=== PATIENT | male | born 1995 | race Asian ===

== ENCOUNTER → 2020-01-22 06:48 | Outpatient (CLI) | payer OTHER, SELFPAY ==
--- NOTE | 2020-01-22 07:11 | DI.ECHO.S_ITS ---
Echocardiogram Report + + :Name: KYLE NEAL Study Date: 01/22/2020 Height: 64 in : :[facility] Weight: 175 lb : : Gender: Male BSA: 1.8 m2 : :: 1995 Age: 24 yrs BP: 122/78 mmHg: :Reason For Study: Elevated Blood Pressure without Hypertension : :Ordering Physician: MARCELLA, : :SHANI Performed By: Becca Chou : :Referring: SHANI NARANJO : + + Interpretation Summary The left ventricle is normal in size and wall thickness. The ejection fraction is estimated to be 60-65%. The right ventricle is mildly dilated. The right ventricular systolic function is normal. No significant valvular pathology seen. Procedure: A two-dimensional transthoracic echocardiogram with color flow and Doppler was performed. The study quality was technically good. There is no prior echocardiogram noted for this patient. The patient was in sinus bradycardia with heart rates between 49-68 bpm during the exam. Left Ventricle: The left ventricle is normal in size and wall thickness. There is no thrombus. A false chord is noted (normal variant). The ejection fraction is estimated to be 60-65%. Left ventricular global longitudinal strain average is -19.7%. There are no focal wall motion abnormalities. Diastolic parameters suggest probable normal left ventricular diastolic function and normal filling pressures. Right Ventricle: The right ventricle is mildly dilated. The right ventricular systolic function is normal. Atria: Both atria are normal in size. There is no Doppler evidence for an interatrial shunt. Mitral Valve: There is a flat closure plane of the the mitral valve leaflets. There is mild mitral annular calcification. There is trace mitral regurgitation. Aortic Valve: The aortic valve is trileaflet. The aortic valve opens well. There is no aortic valve stenosis. No aortic regurgitation is present. Tricuspid Valve: The tricuspid valve is normal in structure and function. There is trace tricuspid regurgitation. Pulmonary artery pressures cannot be estimated because of the lack of a measurable TR jet velocity but the IVC suggests a CVP of around 8 mmHg. Pulmonic Valve: The pulmonic valve leaflets are thin and pliable; valve motion is normal. There is mild pulmonic regurgitation. Great Vessels: The aortic root is normal size. The ascending aorta is normal in size. The IVC is dilated (diameter is greater than 2.1 cm) yet it collapses greater than 50% with a sniff. This suggests a right atrial pressure of 8 mm Hg. Pericardium/ Pleura There is no pericardial effusion. There is no pleural effusion. MMode/2D Measurements & Calculations LVIDd: 4.8 cm LVOT diam: 2.1 cm LVIDs: 3.2 cm Ao root diam: 2.8 cm FS: 34.5 % asc Aorta Diam: 2.6 cm EPSS: 0.70 cm Ao Arch Diam (Prox Trans): 2.5 cm IVSd: 0.98 cm LVPWd: 0.99 cm LV escobar. diameter/BSA (cm/m^2): 2.6 LV sys. diameter/BSA (cm/m^2): 1.7 LA A2 area: 14.7 cm2 RA long axis: 4.9 cm LA A4 area: 17.2 cm2 RA area: 18.4 cm2 LA length (vol): 4.8 cm RA vol: 58.0 ml LA vol: 45.0 ml RA : 31.4 ml/m2 LA vol index: 24.4 ml/m2 IVC diam: 2.2 cm RVD1 (basal): 4.2 cm TAPSE: 2.0 cm Doppler Measurements & Calculations Ao V2 max: 122.4 cm/sec LVOT Max John: 98.8 cm/sec Ao V2 mean: 80.3 cm/sec LV V1 max P.9 mmHg Ao max P.0 mmHg LV V1 VTI: 20.6 cm Ao mean P.0 mmHg GEN(I,D): 2.9 cm2 Ao V2 VTI: 26.0 cm GEN(V,D): 2.9 cm2 sev ratio: 0.79 GEN indexed to BSA (cm^2/m^2): 1.5 MV E max john: 70.4 cm/sec PA V2 max: 74.1 cm/sec MV A max john: 41.1 cm/sec PA V2 mean: 52.1 cm/sec MV E/A: 1.7 PA mean P.3 mmHg Med Peak E' John: 11.7 cm/sec PA pr(Accel): 9.6 mmHg E/E' med: 6.0 Lat Peak E' John: 13.0 cm/sec E/E' lat: 5.4 E/e' average: 5.7 MV dec time: 0.29 sec SV(LVOT): 74.1 ml Reading Physician:03:31 PM
== END ==
PROVIDERS: Referring Provider Preventive Medicine Public Health & General Preventive Medicine; Visit Provider Preventive Medicine Public Health & General Preventive Medicine
DX: I37.1 Nonrheumatic pulmonary valve insufficiency (principal); R03.0 Elevated blood-pressure reading, without diagnosis of hypertension
CPT/HCPCS: 93306

== ENCOUNTER 2020-04-30 21:16 | Emergency (ER) | payer OTHER, SELFPAY ==
[2020-04-30 21:17] VITALS: BP 148/87; PULSE 61; RESP 16; O2SAT 100; BMI 23.1
--- NOTE | 2020-04-30 21:33 | ED.CHESTPAIN ---
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 He states that it occurred earlier today. He is not currently having any of the symptoms. He states that is been off and on for the past 2 days however before 2 days ago he has had this before but very infrequently. He states that when it comes on it is sharp and a ?poking? like sensation. It lasts seconds. Does not seem to be associated with any other symptoms. This is not reproducible with palpation. He states that he did have some pain under his left arm and that was concerning for him so he came to the emergency department for evaluation. Review of Systems Constitutional Constitutional: Denies fatigue, Denies fever(s) and Denies headache(s) ENT Ears, Nose, Mouth, and Throat: Denies headache(s) Cardiovascular Cardiovascular: Reports chest pain, Denies rapid heart rate and Denies dyspnea Respiratory Respiratory: Denies cough and Denies dyspnea Gastrointestinal Gastrointestinal: Denies abdominal pain, Denies nausea and Denies vomiting Integumentary/Breasts Skin/Breast: Denies lesions and Denies rash Neurologic Neurologic: Denies behavioral changes and Denies headache(s) Psychiatric Psychiatric: Denies behavioral changes Endocrine Endocrine: Denies fatigue Hematologic/Lymphatic Hematologic/Lymphatic: Denies easy bleeding and Denies easy bruising Patient History Medical History Healthy adult (Acute) Social History Smoking Status: Never smoker Smoking Status: Never smoker Substance Use Type: does not use Exam Initial Vital Signs Initial Vital Signs: Vital Signs Pulse Rate 61 04/30/20 21:17 Respiratory Rate 16 04/30/20 21:17 Blood Pressure 148/87 H 04/30/20 21:17 Pulse Oximetry 100 04/30/20 21:17 Const General: cooperative and comfortable Limitations: mental status not altered HENMT Head: normal to inspection and normocephalic Chest Chest: No crepitus and No tenderness Resp Effort & Inspection: normal respiratory effort Auscultation: clear to auscultation bilaterally Cardio Rate: regular rate Rhythm: regular rhythm Skin Lesions: no lesions Rashes: no rashes Extrem General: normal to inspection and capillary refill normal Psych Appearance: grossly normal and well kempt Course Orders Ordered: ED Orders 04/30/20 21:26 EKG-12 Lead Stat Vital Signs Vital signs: Vital Signs - 8 hr 04/30/20 21:17 Pulse Rate 61 Respiratory Rate 16 Blood Pressure 148/87 H Pulse Oximetry 100 MDM - Chest Pain ECG Data Attestation: I personally reviewed and interpreted this ECG as follows: Prior ECG tracings: not available for review Interpretation: Sinus rhythm Ventricular rate of 52 Normal axis QRS 165 milliseconds Normal QTC No ST T wave changes MDM Narrative Medical decision making narrative: Patient is low risk for ACS. His symptoms are not consistent with this. Was sharp almost pinpoint left-sided chest discomfort. He is not currently having the symptoms. His EKG is relatively unremarkable. Feel we can hold on further workup for now. Lungs are clear. Will have him follow-up with his primary provider. He is given return precautions. He expressed understanding and agreement. Discharge Plan Departure Patient Disposition: Home Clinical Impression: Atypical chest pain Discharge Date/Time: 04/30/20 21:54 Instructions: DI for Atypical Chest Pain Activity Restrictions/Additional Instructions: I do recommend that you contact your medical department to discuss your blood pressure and potentially even starting on medications. Your symptoms today are not consistent with a heart attack. Recommend you contact your primary doctor to follow up with this as well. Return to the emergency department for any new or worsening symptoms
== END 2020-04-30 21:54 | disposition home or self-care (01) ==
PROVIDERS: Emergency Provider Emergency Medicine
DX: R07.89 Other chest pain (principal)
CPT/HCPCS: 36415; 93005; 99283

== ENCOUNTER 2020-10-23 20:23 | Emergency (ER) | payer OTHER, SELFPAY ==
[2020-10-23 20:53] VITALS: BP 137/88; PULSE 62; RESP 14; TEMP 36.5; O2SAT 100; BMI 23.1
== END 2020-10-23 22:15 | disposition left against medical advice (07) ==
PROVIDERS: Emergency Provider Emergency Medicine
DX: M79.644 Pain in right finger(s) (principal)
CPT/HCPCS: 99281

== ENCOUNTER 2020-11-26 17:23 | Emergency (ER) | payer OTHER, SELFPAY ==
[2020-11-26 17:29] VITALS: BP 142/84; PULSE 88; RESP 20; TEMP 37.1; O2SAT 100
--- NOTE | 2020-11-26 18:06 | ED.NEUROSD ---
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 Describes this episode beginning at approximately 5:30 this evening while he was driving. It did not impair his driving at all and was preceded by an increasingly anxious feeling. He initially noted some tingling in the left lateral calf that then included the leg than the arm than the entire left side of his face. He notes no headache, there is no associated weakness, he did call a friend of his to make sure that he was talking and thinking appropriately and all of that seem to be normal. States that he does not have a history of migraine. He has been having some increased issues with anxiety and depression and is currently seeing a counselor with whom he has reestablishing care. They were supposed to have an appointment this week but needed to rescheduled to next week. He has been tracking blood pressures for the last year and reports that his systolics are averaging 140. There is no family history for stroke or cardiac disease. Currently is only [facility] for medications. He is obviously anxious and obviously quite concerned. He reports no recent fevers cough abdominal pain vomiting or diarrhea. He does note that he had an episode of shooting left-sided chest pain at 2:30 a.m. this morning described as a stabbing piercing feeling that lasted minutes. He was seen in the emergency room in April of last year with similar chest pain complaints. He does describe increasing anxiety, difficulty sleeping and overall depressed mood but no suicidal ideation. On Anticoagulants: No Related Data Allergies Allergy/AdvReac Type Severity Reaction Status Date / Time No Known Drug Allergies Allergy Verified 10/23/20 20:57 Review of Systems Review of Systems Narrative: Remainder of complete review of systems is otherwise unremarkable except for that included in the HPI. Hematologic/Lymphatic On Anticoagulants: No Patient History Medical History (Updated 11/26/20 @ 22:56 by Luma Harvey MD) Anxiety Healthy adult Social History Smoking Status: Never smoker Smoking Status: Never smoker Substance Use Type: does not use Exam Narrative Exam Narrative: General: Healthy appearing, in no acute distress. Significantly anxious with dramatic startle response when I walk into the room but Able to give a complete and coherent history. Well-nourished well-developed HEENT: Moist mucous membranes, normal sclera with reactive pupils, Neck: No JVD, supple, no carotid bruits Respiratory: Lungs are clear to auscultation, no wheezing no rales no rhonchi. Full and symmetrical air movement Cardiac: Regular rate and rhythm no murmurs no bruits. No palpable reproducible left anterior chest pain Abdomen: Soft, nontender, good bowel tones, no flank pain Skin: Warm and dry, no rashes Neurologic: Grossly neurologically intact with no obvious asymmetries or abnormalities. NIH= 0 Extremities: No trauma, well perfused Psych: Cooperative, anxious with appropriate insight and affect Initial Vital Signs Initial Vital Signs: Vital Signs Temperature 98.7 F 11/26/20 17:29 Pulse Rate 88 11/26/20 17:29 Respiratory Rate 20 11/26/20 17:29 Blood Pressure 142/84 H 11/26/20 17:29 Pulse Oximetry 100 11/26/20 17:29 Course Orders Ordered: ED Orders 11/26/20 17:31 EKG-12 Lead Stat 11/26/20 18:45 CT angio head and neck Stat 11/26/20 19:15 Complete Blood Count AUTO DIFF Stat Comprehensive Metabolic Panel Stat D Dimer Stat Vital Signs Vital signs: Vital Signs - 8 hr 11/26/20 17:29 11/26/20 19:25 Temperature 98.7 F Pulse Rate 88 56 L Respiratory Rate 20 18 Blood Pressure 142/84 H 134/90 Pulse Oximetry 100 100 MDM - Neuro Symptoms/Deficit Medical Records Attestation: I reviewed the patient's medical records. Lab Data Attestation: I reviewed the patient's lab results. Result diagrams: 11/26/20 19:15 11/26/20 19:15 Labs: Lab Results 11/26/20 11/26/20 11/26/20 Range/Units 19:15 19:15 19:15 WBC 5.4 (4.5-11.0) X10^3/uL RBC 5.21 (4.5-5.9) X10^6/uL Hgb 15.8 (13.5-17.5) g/dL Hct 44.5 (41-53) % MCV 85.3 (80-100) fL MCH 30.4 (26-34) PG MCHC 35.6 (30-36) % RDW 13.1 (11.6-14.8) % Plt Count 164 (150-400) X10^3/uL Neut % (Auto) 54.4 (50-75) % Lymph % (Auto) 38.8 (25-40) % [place] % (Auto) 5.2 (3-14) % Eos % (Auto) 1.2 L (2-4) % Baso % (Auto) 0.4 (0-2) % Neut # (Auto) 3000 (1023-8298) /uL Lymph # (Auto) 2100 (0402-1393) /uL [place] # (Auto) 300 (0-900) /uL Eos # (Auto) 100 (0-450) /uL Baso # (Auto) 0 (0-100) /uL D-Dimer < 200 (<230) ng/mL Sodium 140 (137-145) mmol/L Potassium 3.5 (3.4-5.1) mmol/L Chloride 102 (98-107) mmol/L Carbon Dioxide 26 (22-32) mmol/L BUN 15 (9-20) mg/dL Creatinine 0.95 (0.66-1.25) mg/dL Estimated GFR > 60.0 (>60) mL/min BUN/Creatinine Ratio 15.8 (6-22) Glucose 117 H (70-100) mg/dL Calcium 9.4 (8.4-10.2) mg/dL Total Bilirubin 0.5 (0.2-1.3) mg/dL AST 33 (17-59) IU/L ALT 21 (<50) IU/L Alkaline Phosphatase 59 (38-126) U/L Total Protein 7.3 (6.3-8.2) g/dL Albumin 4.6 (3.5-5.0) g/dL Globulin 2.7 (1.7-4.1) g/dL Albumin/Globulin Ratio 1.7 (1.0-2.8) Imaging Data CTA head and neck: Radiologist's Impression: FINDINGS: Image quality: Excellent. BRAIN: CSF spaces: Basal cisterns are patent. No extra-axial fluid collections. Ventricles are normal in size and shape. Brain: No intracranial hemorrhage, mass, or mass effect. [place]-white matter interface appears preserved. No abnormal intracranial enhancement. Skull and face: Calvarium and facial bones appear intact, without suspicious lesions. Orbits appear normal. Sinuses: Sinuses and mastoids are clear. HEAD CT ANGIOGRAPHY: Anterior circulation: Intracranial internal carotid arteries are normal in size and appear patent bilaterally. The paired anterior cerebral arteries appear patent bilaterally. The anterior communicating artery also appears patent. The middle cerebral arteries appear patent bilaterally. No high-grade stenosis, occlusion, or filling defects. No cerebral aneurysms identified. Posterior circulation: Visualized portions of the vertebral arteries demonstrate normal caliber, and join to form a patent basilar artery. The posterior cerebral arteries appears patent bilaterally. No high-grade stenosis, occlusion, or filling defects. No cerebral aneurysms identified. NECK CT ANGIOGRAPHY: Carotid system: The great vessels demonstrate a conventional anatomy as they arise from the aortic arch. The origins of the common carotid arteries appear patent. The common carotid arteries demonstrate normal caliber and courses. The bifurcation regions are both widely patent. The internal carotid arteries demonstrate normal calibers and courses. Posterior circulation: The origins of the vertebral arteries both appear patent. The more superior extracranial portions of both vertebral arteries also demonstrate normal courses and calibers. They join to form a patent basilar artery. Soft tissues: Visualized neck soft tissues demonstrate no suspicious abnormalities. Bones: No suspicious bony lesions. Visualized cervical spine appears normally aligned. IMPRESSION: 1. No acute intracranial abnormality. 2. No high-grade stenosis or occlusion of the central intracranial arteries. 3. No high-grade stenosis or occlusion of the head and neck arteries. Any quantitative measurements of stenosis were performed using NASCET criteria. Dictated by: Benito Heath M.D. on 11/26/2020 at 20:41 MDM Narrative Medical decision making narrative: 24-year-old gentleman clearly anxious however with his description of 30 minutes of left leg arm face and forehead paresthesia, TIA is certainly within the differential. Will proceed with lab workup and CTA. Studies and labs are unremarkable. At this point there is no evidence of stroke or TIA. Most likely explanation is increased stress and anxiety. Patient does have a follow-up appointment with his counselor. Reassurance regarding his physical health and medical workup today are shared. Discharge Plan Departure Patient Disposition: Home Clinical Impression: Anxiety, Paresthesia Instructions: DI for Transient Ischemic Attack Activity Restrictions/Additional Instructions: Thank you for coming in today Your head CT and CT angiogram of your head and neck were very reassuring. There is no stroke, no aneurysms, no bleeding and no stenotic areas of concern. I suspect that your symptoms were related to increasing anxiety levels. I think it was very appropriate to complete this thorough workup. I have given you copies of your blood work as well as your CT scan Please share these with your primary care provider. I would strongly encourage you to follow-up with your counseling session and talk about medication management with your primary care provider as well I wish you the best
--- NOTE | 2020-11-26 18:45 | DI.CT.S_ITS ---
PROCEDURE: CT ANGIO HEAD AND NECK INDICATIONS: 30 min left body paresthesia, now resolved TECHNIQUE: Pre-contrast 4.5 mm thick sections acquired from the foramen magnum to the vertex. After the administration of intravenous contrast, 1 mm thick sections acquired from the aortic arch through the [place]. Post-contrast 4.5 mm thick sections then re-acquired from the foramen magnum to the vertex. 3-dimensional [id number] (MIP) and/or volume rendering reformats were acquired of the central intracranial vasculature and neck separately. COMPARISON: None. FINDINGS: Image quality: Excellent. BRAIN: CSF spaces: Basal cisterns are patent. No extra-axial fluid collections. Ventricles are normal in size and shape. Brain: No intracranial hemorrhage, mass, or mass effect. [place]-white matter interface appears preserved. No abnormal intracranial enhancement. Skull and face: Calvarium and facial bones appear intact, without suspicious lesions. Orbits appear normal. Sinuses: Sinuses and mastoids are clear. HEAD CT ANGIOGRAPHY: Anterior circulation: Intracranial internal carotid arteries are normal in size and appear patent bilaterally. The paired anterior cerebral arteries appear patent bilaterally. The anterior communicating artery also appears patent. The middle cerebral arteries appear patent bilaterally. No high-grade stenosis, occlusion, or filling defects. No cerebral aneurysms identified. Posterior circulation: Visualized portions of the vertebral arteries demonstrate normal caliber, and join to form a patent basilar artery. The posterior cerebral arteries appears patent bilaterally. No high-grade stenosis, occlusion, or filling defects. No cerebral aneurysms identified. NECK CT ANGIOGRAPHY: Carotid system: The great vessels demonstrate a conventional anatomy as they arise from the aortic arch. The origins of the common carotid arteries appear patent. The common carotid arteries demonstrate normal caliber and courses. The bifurcation regions are both widely patent. The internal carotid arteries demonstrate normal calibers and courses. Posterior circulation: The origins of the vertebral arteries both appear patent. The more superior extracranial portions of both vertebral arteries also demonstrate normal courses and calibers. They join to form a patent basilar artery. Soft tissues: Visualized neck soft tissues demonstrate no suspicious abnormalities. Bones: No suspicious bony lesions. Visualized cervical spine appears normally aligned. IMPRESSION: 1. No acute intracranial abnormality. 2. No high-grade stenosis or occlusion of the central intracranial arteries. 3. No high-grade stenosis or occlusion of the head and neck arteries. Any quantitative measurements of stenosis were performed using NASCET criteria. Dictated by: Benito Heath M.D. on 11/26/2020 at 20:41 Approved by: Benito Heath M.D. on 11/26/2020 at 20:45
[2020-11-26 19:25] VITALS: BP 134/90; PULSE 56; RESP 18; O2SAT 100
[2020-11-26 19:35] LABS: D Dimer < 200 ng/mL (<230)
[2020-11-26 19:36] LABS: Alanine Aminotransferase 21 IU/L (<50); Albumin 4.6 g/dL (3.5-5.0); Albumin Globulin Ratio 1.7 (1.0-2.8); Alkaline Phosphatase 59 U/L (38-126); Aspartate Aminotransferase 33 IU/L (17-59); BUN Creatinine Ratio 15.8 (6-22); Bilirubin Total 0.5 mg/dL (0.2-1.3); Blood Urea Nitrogen 15 mg/dL (9-20); Calcium 9.4 mg/dL (8.4-10.2); Carbon Dioxide 26 mmol/L (22-32); Chloride 102 mmol/L (98-107); Estimated Glomerular Filt Rate > 60.0 mL/min (>60); Globulin 2.7 g/dL (1.7-4.1); Glucose 117 mg/dL (70-100); HEMOLYSIS 22 (0-50); Potassium 3.5 mmol/L (3.4-5.1); Sodium 140 mmol/L (137-145); Total Protein 7.3 g/dL (6.3-8.2)
[2020-11-26 19:37] LABS: Add Manual Diff / Slide Review NO; Basophils Absolute Auto 0 /uL (0-100); Basophils Percent Auto 0.4 % (0-2); Eosinophils Absolute Auto 100 /uL (0-450); Eosinophils Percent Auto 1.2 % (2-4); Hematocrit 44.5 % (41-53); Hemoglobin 15.8 g/dL (13.5-17.5); Lymphocytes Absolute Auto 2100 /uL (1100-4500); Lymphocytes Percent Auto 38.8 % (25-40); Mean Corpuscular HGB Conc 35.6 % (30-36); Mean Corpuscular Hemoglobin 30.4 PG (26-34); Mean Corpuscular Volume 85.3 fL (80-100); Monocytes Absolute Auto 300 /uL (0-900); Monocytes Percent Auto 5.2 % (3-14); Neutrophils Absolute Auto 3000 /uL (1500-7000); Neutrophils Percent Auto 54.4 % (50-75); Platelet Count 164 X10^3/uL (150-400); Red Blood Cell Count 5.21 X10^6/uL (4.5-5.9); Red Cell Distribution Width 13.1 % (11.6-14.8); White Blood Cell Count 5.4 X10^3/uL (4.5-11.0)
[2020-11-26 23:02] VITALS: BP 126/80; PULSE 60; RESP 16; O2SAT 100
== END 2020-11-26 23:03 | disposition home or self-care (01) ==
PROVIDERS: Emergency Provider Emergency Medicine
DX: F41.9 Anxiety disorder, unspecified (principal); R20.2 Paresthesia of skin
CPT/HCPCS: 36415; 70496; 70498; 80053; 85025; 85379; 93005; 93010; 99284; Q9967